=== PATIENT | female | born 1945 | race Caucasian/White ===

== ENCOUNTER → 2025-05-31 08:04 | Outpatient (BNVA) | payer MEDICARE, OTHER, SELFPAY | PROVIDERS: PCP Internal Medicine; Referring Provider Orthopaedic Surgery; Visit Provider Specialist | DX: G60.3 Idiopathic progressive neuropathy (principal); D36.13 Benign neoplasm of peripheral nerves and autonomic nervous system of lower limb, including hip; M96.1 Postlaminectomy syndrome, not elsewhere classified; G57.61 Lesion of plantar nerve, right lower limb | CPT/HCPCS: 99204 ==

== ENCOUNTER → 2025-07-18 09:24 | Outpatient (BNVA) | payer MEDICARE, OTHER, SELFPAY | PROVIDERS: PCP Internal Medicine; Referring Provider Specialist; Visit Provider Specialist | DX: G60.3 Idiopathic progressive neuropathy (principal); M96.1 Postlaminectomy syndrome, not elsewhere classified; G57.61 Lesion of plantar nerve, right lower limb | CPT/HCPCS: 95909 ==